=== PATIENT | female | born 1995 | race African-American/Black ===

== ENCOUNTER 2017-03-26 05:17 | Emergency (ER) | payer SELFPAY ==
[~2017-03-26] VITALS: Ht 162.6 cm; Wt 48.0 kg
[~2017-03-26 05:17] MED LIST: CEPH-460 PO; NYST15T TOPICAL
[2017-03-26 05:18] VITALS: BP 107/68; PULSE 82; RESP 18; TEMP 98.5; O2SAT 100
--- NOTE | 2017-03-26 05:58 | PD ---
HPI Chief Complaint: Abdominal Pain Time Seen by Provider: 05:38 Travel History International Travel<30 days: No Contact w/Intl Traveler<30days: No Traveled to known affect area: No History of Present Illness HPI The patient is a 22 year old female who presents to the [facility] emergency department with a history of awakening with a sensation of needing to urinate at 4 AM. The patient reports that since then she repeatedly feels like she needs to urinate and then began to have abdominal pain and bilateral lower quadrants of the abdomen in the suprapubic area. She reports that she recently saw her butter grader approximately 1-2 weeks ago. She reports that at that time she did have vaginal discharge. She reports that she had a pelvic examination done and was given a yeast medication pill. She reports that she completed the one-time dose and has not had any discharge since then. She reports that she is sexually active. She currently is not on any type of control. She reports that she has a Nexplanon in place, however it is been in place for over 3 years. She reports having a history of irregular menstrual cycles. Her last menstrual cycle was normal for her and the first day of it was March 04. The patient incidentally also reports that she has a history of Crohn's disease. She is not currently on any medication for it and has not been on any for the last year. She reports that she has had a bowel movement earlier today. She denies having any blood in her stool earlier today, however she reports 2 weeks ago she did have a small amount of blood on the toilet paper when she wiped after moving her bowels. The patient reports having dysuria with urinary urgency. On review of systems otherwise, the patient denies any recent known fevers, cough, congestion, neck pain, chest pain, shortness of breath, vomiting, diarrhea, or neurologic symptoms. LMP: 03/04. She has irregular cycles. Nexplanon in place for over 3 years. [facility] Past Medical History Narrative Medical The patient's past medical history is significant for Crohn's disease- dx 2013- on no medications for the last year, lichen sclerosis. PCP: none. Diminished Hearing: No Gastrointestinal Disorders: Yes (Chrons) Musculoskeletal: Yes (right sprained ankle) Immunizations Current: Yes Tetanus Vaccination: Unknown ?: Unknown LMP: 03/04/2017 Past Surgical History Surgical History: No Previous Surgery Social History Alcohol Use: Yes (occ) Tobacco Use: No Substance Use: No Allergies-Medications (Allergen,Severity, Reaction): Coded Allergies: No Known Allergies (Unverified , 06/06/16) Reported Meds & Prescriptions Reported Meds & Active Scripts Active Review of Systems Except as stated in HPI: all other systems reviewed are Neg General / Constitutional: No: Fever Eyes: No: Visual changes HENT: No: Headaches Cardiovascular: No: Chest Pain or Discomfort Respiratory: No: Shortness of Breath Gastrointestinal: Positive: Abdominal Pain, Hematochezia, No: Nausea, Vomiting , Diarrhea, Hematemesis, Changes in Bowel Habits, Indigestion, Loss of Appetite Genitourinary: Positive: Urgency, Frequency, Dysuria, Pelvic Pain, Discharge, No: Vaginal Bleeding Musculoskeletal: No: Pain Skin: No Rash Neurologic: No: Weakness Psychiatric: No: Depression Endocrine: No: Polydipsia Hematologic/Lymphatic: No: Easy Bruising Physical Exam Narrative General: The patient is a well-developed well-nourished female in no acute distress. Head and Neck exam: Head is normocephalic atraumatic. Eyes: EOMI, pupils are equal round and reactive to light. Nose: Midline septum with pink mucous membranes Mouth: Dentition unremarkable. Moist mucus membranes. Posterior oropharynx is not erythematous. No tonsillar hypertrophy. Uvula midline. Airway patent. Neck: No palpable lymphadenopathy. No nuchal rigidity. No thyromegaly. Cardiovascular: Regular rate and rhythm without murmurs, gallops, or rubs. No pulse deficit to the extremities. Lungs: Clear to auscultation bilaterally. No wheezes, rhonchi, or rales. Abdomen: Soft, with tenderness on palpation along the suprapubic area and bilateral lower quadrants of the abdomen as well as the right upper quadrant of the abdomen. No guarding, rebound, or rigidity. Negative [place] sign. Normal bowel sounds are audible. No point tenderness specifically on palpation over McBurney's point. Extremities: No clubbing, cyanosis, or edema. 2+ pulses in all 4 extremities. Back: No spinous process tenderness to palpation. Right-sided CVA tenderness on palpation. Neurologic Exam: Grossly nonfocal. Skin Exam: No rash noted. Intact skin that is warm and dry. Gynecologic exam: The patient was placed in the dorsal lithotomy position. Her external genitalia were examined. She had no evidence of rash or lesions. The speculum was placed into her vagina and the cervix was identified. She had a white to yellow discharge noted on examination with cervical motion tenderness noted.. No cervical friability. On Bimanual exam: No adnexal tenderness or prominence noted on palpation. No uterine tenderness or enlargement noted on palpation. Data Data Last Documented VS Vital Signs Date Time Temp Pulse Resp B/P (MAP) Pulse Ox O2 Delivery O2 Flow Rate FiO2 03/26/17 05:18 98.5 82 18 107/68 (81) 100 Orders Orders Complete Blood Count With Diff (03/26/17 05:58) Comprehensive Metabolic Panel (03/26/17 05:58) Lipase (03/26/17 05:58) Urinalysis - C+S If Indicated (03/26/17 05:58) Westergren Sedimentation Rate (03/26/17 05:58) Magnesium (Mg) (03/26/17 05:58) Iv Access Insert/Monitor (03/26/17 05:58) Ecg Monitoring (03/26/17 05:58) Oximetry (03/26/17 05:58) Ed Urine Pregnancytest Poc (03/26/17 05:58) Sodium Chlor 0.9% 1000 Ml Inj (Ns 1000 M (03/26/17 06:00) Ketorolac Inj (Toradol Inj) (03/26/17 06:15) Gc And Chlamydia Pcr (03/26/17 06:03) Wet Prep Profile (03/26/17 06:03) Labs Laboratory Tests Test 03/26/17 06:30 [facility] Medical Decision Making Medical Screen Exam Complete: Yes Emergency Medical Condition: Yes Medical Record Reviewed: Yes Differential Diagnosis Trichomoniasis, versus PID, versus gonorrhea, versus chlamydia, versus Crohn's exacerbation, versus ovarian cyst Narrative Course During the course of the patients emergency department visit, the patients history, examination, and differential diagnosis were reviewed with the patient. The patient had IV access obtained and blood work sent for analysis. The patient was placed on a photocomposing machine operator with oximetry and blood pressure monitoring. The patient was initially provided normal saline 1 L IV fluid bolus, Toradol 15 mg IV, Rocephin 250 mg IV, Zithromax 1 g by mouth 1. The patients laboratory studies and CT scan of the abdomen and pelvis are pending at the conclusion of my shift. The patient's case will be checked out to the oncoming emergency physician to disposition the patient based on the conclusion of the patient's workup. Ivon Lorenzo MD Mar 26, 2017 05:58
[2017-03-26] MEDS ORDERED: SODIUM CHLOR 0.9% 1000 ML INJ 1,000 ML IV ONE (06:00)
[2017-03-26] MEDS ORDERED: KETOROLAC TROMETHAMINE 30 MG/ML (IVP) VIAL IV PUSH ONE (06:15)
[2017-03-26 06:56] LABS: AUTOMATED NEUTROPHIL # 3.4 TH/MM3 (1.8-7.7); BASOPHIL % 0.6 % (0.0-2.0); EOSINOPHIL # 0.1 TH/MM3 (0-0.4); HEMATOCRIT 31.1 % (35.0-46.0); HEMO FLAGS DIFF FINAL; LYMPH % 42.9 % (9.0-44.0); LYMPHOCYTE # 3.1 TH/MM3 (1.0-4.8); MEAN CORPUSCULAR HEMOGLOBIN 26.4 PG (27.0-34.0); MEAN CORPUSCULAR HGB CONC 33.1 % (32.0-36.0); MONO % 7.9 % (0.0-8.0); NEUT % 46.6 % (16.0-70.0); PLATELET COUNT 323 TH/MM3 (150-450); RED BLOOD COUNT 3.89 MIL/MM3 (4.00-5.30); RED CELL DISTRIBUTION WIDTH 13.4 % (11.6-17.2); WHITE BLOOD COUNT 7.3 TH/MM3 (4.0-11.0)
[2017-03-26 07:00] VITALS: BP 104/60; PULSE 61; RESP 14; O2SAT 100
[2017-03-26] MEDS ORDERED: AZITHROMYCIN PWD FOR SUSP 1 GM PACKET PO ONE (07:00)
[2017-03-26] MEDS ORDERED: cefTRIAXone INJ 1,000 MG in SODIUM CHLORIDE 0.9% INJ 100 ML IV ONE (07:00)
[2017-03-26 07:07] LABS: ALT (GPT) 12 U/L (10-53); ANION GAP 6 MEQ/L (5-15); AST (GOT) 12 U/L (15-37); BICARBONATE 26.1 MEQ/L (21.0-32.0); BLOOD UREA NITROGEN 13 MG/DL (7-18); CHLORIDE 107 MEQ/L (98-107); GLOMERULAR FILTRATION RATE 125 ML/MIN (>89); POTASSIUM 3.8 MEQ/L (3.5-5.1); SODIUM (NA) 139 MEQ/L (136-145)
[2017-03-26 07:09] LABS: ALKALINE PHOSPHATASE 103 U/L (45-117); TOTAL BILIRUBIN ADULT 0.3 MG/DL (0.2-1.0)
[2017-03-26 07:19] LABS: BACTERIA, URINE MOD /hpf; BLOOD, URINE TRACE (NEG); COMMENT (UR) CULTURE INDICATED; CULTURE IF INDICATED CULTURE INDICATED; GLUCOSE,URINE NEG (NEG); KETONE, URINE NEG (NEG); MUCUS URINE MOD /lpf (OCC); NITRITE,URINE NEG (NEG); SQUAMOUS EPITHELIAL CELL URINE 17 /hpf (0-5); TRANSITIONAL EPI CELLS, URINE 1 /hpf; URINE COLOR YELLOW (YELLW/STRAW)
[2017-03-26] MEDS ORDERED: IOHEXOL 350 MG/ML 10 ML VIAL (for RAD DIAG) IV PUSH ONE (08:15)
--- NOTE | 2017-03-26 08:30 | RADRPT ---
EXAM DATE/TIME: 03/26/2017 08:11 [facility] COMPARISON: CT ABDOMEN & PELVIS W CONTRAST, February 28, 2016, 16:22. INDICATIONS : Right lower quadrant pain. IV CONTRAST: 78 cc Omnipaque 350 (iohexol) IV ORAL CONTRAST: No oral contrast ingested. RADIATION DOSE: 4.51 CTDIvol (mGy) MEDICAL HISTORY : Crohn's disease. SURGICAL HISTORY : None. ENCOUNTER: Initial ACUITY: 1 day PAIN SCALE: 5/10 LOCATION: Right lower quadrant TECHNIQUE: Volumetric scanning of the abdomen and pelvis was performed. Using automated exposure control and ad justment of the mA and/or kV according to patient size, radiation dose was kept as low as reasonably achievable to obtain optimal diagnostic quality images. DICOM format image data is available electro nically for review and comparison. FINDINGS: Examination of the lung bases demonstrates no abnormality. No pleural fluid is identified. No pulmona ry nodules are present. The liver and spleen are free of focal defects. The gallbladder and pancreas demonstrate no abnormality. The adrenal glands are normal. The kidneys demonstrate no evidence of nancy id renal mass or hydronephrosis. No free fluid or abdominal masses are identified. No para-aortic shyann nopathy is seen. Fluid is identified within the endometrial cavity. No adnexal masses are identified. A small amount o f fluid is present within the pelvis within the physiologic range. There is no evidence of abscess. T he bladder appears normal. No wall thickening or intraluminal masses are identified. CONCLUSION: 1. No evidence of acute abdominal or pelvic process. No masses are identified. Cachorro Guerra MD on March 26, 2017 at 8:25 Board Certified Radiologist. This report was verified electronically.
[2017-03-26 09:14] LABS: CHLAMYDIA PCR NOT DETECTED (NOT DETECT); NEISSERIA PCR NOT DETECTED (NOT DETECT)
[2017-03-26 09:28] VITALS: BP 76/44; PULSE 94; RESP 15; O2SAT 99
[2017-03-26 12:15] VITALS: BP 101/55; PULSE 77; RESP 16; O2SAT 100
[2017-03-26] MEDS ORDERED: BACT800T5 PO (12:18)
--- NOTE | 2017-03-26 12:19 | PD ---
Physical Exam Date Seen by Provider: Mar 26, 2017 Time Seen by Provider: 07:30 Narrative Patient signed out to me by Dr. Lorenzo, please see previous notes for further details. Awaiting CAT scan. Patient had been given prophylactic antibiotics for vaginal discharge. Laboratory Tests Test 03/26/17 06:30 03/26/17 06:43 Red Blood Count 3.89 MIL/MM3 (4.00-5.30) Hemoglobin 10.3 GM/DL (11.6-15.3) Hematocrit 31.1 % (35.0-46.0) Mean Corpuscular Hemoglobin 26.4 PG (27.0-34.0) Erythrocyte Sedimentation Rate 21 mm/hr (0-20) Urine Turbidity HAZY (CLEAR) Urine Protein 30 mg/dL (NEG-TRACE) Urine Occult Blood TRACE (NEG) Urine Leukocyte Esterase LARGE (NEG) Urine RBC 7 /hpf (0-3) Urine WBC 97 /hpf (0-5) Urine Bacteria MOD /hpf (NONE) Urine Mucus MOD /lpf (OCC) Calcium Level 8.3 MG/DL (8.5-10.1) Aspartate Amino Transf (AST/SGOT) 12 U/L (15-37) Lipase 71 U/L (73-393) Lab work is significant for UTI which I also plan to treat. CAT scan was unremarkable for any signs of acute intra-abdominal processes. Follow-up with primary care physician at this point. Return for any worsening in symptoms as necessary. The plan has been discussed with her and she states understanding. Data Data Last Documented VS Vital Signs Date Time Temp Pulse Resp B/P (MAP) Pulse Ox O2 Delivery O2 Flow Rate FiO2 03/26/17 12:15 77 16 101/55 (70) 100 Room Air 03/26/17 05:18 98.5 Orders Orders Complete Blood Count With Diff (03/26/17 05:58) Comprehensive Metabolic Panel (03/26/17 05:58) Lipase (03/26/17 05:58) Urinalysis - C+S If Indicated (03/26/17 05:58) Westergren Sedimentation Rate (03/26/17 05:58) Magnesium (Mg) (03/26/17 05:58) Iv Access Insert/Monitor (03/26/17 05:58) Ecg Monitoring (03/26/17 05:58) Oximetry (03/26/17 05:58) Ed Urine Pregnancytest Poc (03/26/17 05:58) Sodium Chlor 0.9% 1000 Ml Inj (Ns 1000 M (03/26/17 06:00) Ketorolac Inj (Toradol Inj) (03/26/17 06:15) Gc And Chlamydia Pcr (03/26/17 06:03) Wet Prep Profile (03/26/17 06:03) Ceftriaxone Inj (Rocephin Inj) (03/26/17 07:00) Azithromycin Powd Pack (Zithromax Powd P (03/26/17 07:00) Ct Abd/Pel W Iv Contrast(Rout) (03/26/17 06:58) Urine Culture (03/26/17 06:30) Iohexol 350 Inj (Omnipaque 350 Inj) (03/26/17 08:15) Labs Laboratory Tests Test 03/26/17 06:30 03/26/17 06:43 White Blood Count 7.3 TH/MM3 Red Blood Count 3.89 MIL/MM3 Hemoglobin 10.3 GM/DL Hematocrit 31.1 % Mean Corpuscular Volume 80.0 FL Mean Corpuscular Hemoglobin 26.4 PG Mean Corpuscular Hemoglobin Concent 33.1 % Red Cell Distribution Width 13.4 % Platelet Count 323 TH/MM3 Mean Platelet Volume 9.3 FL Neutrophils (%) (Auto) 46.6 % Lymphocytes (%) (Auto) 42.9 % Monocytes (%) (Auto) 7.9 % Eosinophils (%) (Auto) 2.0 % Basophils (%) (Auto) 0.6 % Neutrophils # (Auto) 3.4 TH/MM3 Lymphocytes # (Auto) 3.1 TH/MM3 Monocytes # (Auto) 0.6 TH/MM3 Eosinophils # (Auto) 0.1 TH/MM3 Basophils # (Auto) 0.0 TH/MM3 CBC Comment DIFF FINAL Differential Comment Erythrocyte Sedimentation Rate 21 mm/hr Urine Color YELLOW Urine Turbidity HAZY Urine pH 6.0 Urine Specific [place] 1.031 Urine Protein 30 mg/dL Urine Glucose (UA) NEG mg/dL Urine Ketones NEG mg/dL Urine Occult Blood TRACE Urine Nitrite NEG Urine Bilirubin NEG Urine Urobilinogen 2.0 MG/DL Urine Leukocyte Esterase LARGE Urine RBC 7 /hpf Urine WBC 97 /hpf Urine Squamous Epithelial Cells 17 /hpf Urine Transitional Epithelial Cells 1 /hpf Urine Bacteria MOD /hpf Urine Mucus MOD /lpf Microscopic Urinalysis Comment CULTURE INDICATED Blood Urea Nitrogen 13 MG/DL Creatinine 0.71 MG/DL Random Glucose 90 MG/DL Total Protein 7.6 GM/DL Albumin 3.8 GM/DL Calcium Level 8.3 MG/DL Magnesium Level 2.0 MG/DL Alkaline Phosphatase 103 U/L Aspartate Amino Transf (AST/SGOT) 12 U/L Alanine Aminotransferase (ALT/SGPT) 12 U/L Total Bilirubin 0.3 MG/DL Sodium Level 139 MEQ/L Potassium Level 3.8 MEQ/L Chloride Level 107 MEQ/L Carbon Dioxide Level 26.1 MEQ/L Anion Gap 6 MEQ/L Estimat Glomerular Filtration Rate 125 ML/MIN Lipase 71 U/L Clue Cells (Wet Prep) NONE SEEN Vaginal Trichomonas (Wet Prep) NONE SEEN Vaginal Yeast (Wet Prep) NONE SEEN Chlamydia trachomatis DNA (PCR) NOT DETECTED Neisseria gonorrhoeae DNA (PCR) NOT DETECTED MDM Medical Record Reviewed: Yes Supervised Visit with MI: No Diagnosis Primary Impression: Urinary tract infection Additional Impression: Abdominal pain Med/Other Pt SpecificInfo: Prescription(s) given Scripts Sulfamethoxazole-Trimethoprim (Bactrim DS) 800-160 Mg Tab 1 TAB PO BID for Infection, #14 TAB 0 Refills Prov: Anh Monroe MD 03/26/17 Disposition: 01 DISCHARGE HOME Condition: Stable Anh Monroe MD Mar 26, 2017 12:19
== END 2017-03-26 12:33 | disposition home or self-care (01) ==
LOC: NEPE 05:17
DX: N39.0 Urinary tract infection, site not specified (principal); K50.90 Crohn's disease, unspecified, without complications; N89.8 Other specified noninflammatory disorders of vagina
CPT/HCPCS: 74177; 80053; 81001; 83690; 83735; 84703; 85025; 85652; 87086; 87210; 87491; 87591; 96365; 96375; 99285; J0696; J1885; J7030; Q9967

== ENCOUNTER 2017-09-27 13:03 | Emergency (ER) | payer BC, OTHER ==
[~2017-09-27] VITALS: Ht 162.6 cm; Wt 45.0 kg
[~2017-09-27 13:03] MED LIST changes: +BACT800T5 PO; -CEPH-460 PO; -NYST15T TOPICAL
[2017-09-27 13:10] VITALS: BP 123/81; PULSE 106; RESP 16; TEMP 100; O2SAT 100
[2017-09-27 13:55] LABS: BACTERIA, URINE FEW /hpf; BILIRUBIN, URINE NEG (NEG); BLOOD, URINE SMALL (NEG); GLUCOSE,URINE NEG (NEG); KETONE, URINE TRACE mg/dL (NEG); MUCUS URINE MANY /lpf (OCC); NITRITE,URINE NEG (NEG); SQUAMOUS EPITHELIAL CELL URINE 14 /hpf (0-5); URINE COLOR YELLOW (YELLW/STRAW); URINE LEUKOCYTE ESTERASE TRACE (NEG)
[2017-09-27 15:55] VITALS: BP 117/77; PULSE 89; RESP 18; TEMP 102; O2SAT 100
[2017-09-27] MEDS ORDERED: ACETAMINOPHEN 325 MG TAB PO ONE (16:45)
--- NOTE | 2017-09-27 16:49 | PD ---
HPI Chief Complaint: Abdominal Pain Time Seen by Provider: 16:09 Travel History International Travel<30 days: No Contact w/Intl Traveler<30days: No Traveled to known affect area: No History of Present Illness HPI The patient was seen and examined in the presence of the nurse. This patient complains of fever. Duration 2 days. Severity of symptoms is moderate. She has had runny nose and congestion as well as a cough that is prominent. She reports a history of Crohn's disease but has been off medication for 2 years because she has been symptom-free. She comes in worrying that she has toxic shock syndrome. She says on Sunday she left a tampon in for approximately 25 hours. She is not having vaginal discharge or any significant pelvic pain. No alleviating factors. No exacerbating factors. PFSH Past Medical History Diminished Hearing: No Gastrointestinal Disorders: Yes (CROHNS DISEASE) Musculoskeletal: Yes (right sprained ankle) Immunizations Current: Yes Tetanus Vaccination: > 5 Years Influenza Vaccination: No ?: Not LMP: 09/24/17 : 0 Para: 0 Miscarriage: 0 : 0 Past Surgical History Surgical History: No Previous Surgery Social History Alcohol Use: Yes (SOCIALLY) Tobacco Use: No Substance Use: No Allergies-Medications (Allergen,Severity, Reaction): Coded Allergies: No Known Allergies (Unverified Adverse Reaction, Unknown, 09/27/17) Reported Meds & Prescriptions Reported Meds & Active Scripts Active No Active Prescriptions or Reported Medications Review of Systems General / Constitutional: Positive: Fever Eyes: No: Visual changes HENT: Positive: Rhinorrhea, Congestion, No: Headaches Cardiovascular: No: Chest Pain or Discomfort Respiratory: Positive: Cough, No: Shortness of Breath Gastrointestinal: No: Abdominal Pain Genitourinary: No: Dysuria Musculoskeletal: No: Pain Skin: No Rash Neurologic: No: Weakness Psychiatric: No: Depression Endocrine: No: Polydipsia Hematologic/Lymphatic: No: Easy Bruising Physical Exam Narrative GENERAL: Thin pleasant well-developed patient in no apparent distress. SKIN: Focused skin assessment reveals no rash and nodules. Skin is Warm and dry. HEAD: Atraumatic. Normocephalic. EYES: Pupils equal and round. No scleral icterus. No injection or drainage. ENT: No nasal bleeding or discharge. Mucous membranes pink and moist. Throat clear NECK: Trachea midline. No JVD. No meningeal signs CARDIOVASCULAR: Regular rate and rhythm. No murmur appreciated. RESPIRATORY: No accessory muscle use. Clear to auscultation. Breath sounds equal bilaterally. GASTROINTESTINAL: Abdomen soft, non-tender, nondistended. Hepatic and splenic margins not palpable. MUSCULOSKELETAL: No obvious deformities. No clubbing. No cyanosis. No edema. NEUROLOGICAL: Awake and alert. No obvious cranial nerve deficits. Motor grossly within normal limits. Normal speech. PSYCHIATRIC: Appropriate mood and affect; insight and judgment normal. Pelvic: No discharge. No cervical motion tenderness. No adnexal mass or tenderness. Scant amount of brown clotted blood in the vault Data Data Last Documented VS Vital Signs Date Time Temp Pulse Resp B/P (MAP) Pulse Ox O2 Delivery O2 Flow Rate FiO2 09/27/17 15:55 16 09/27/17 15:55 102.0 89 117/77 (90) 100 Room Air Orders Orders Complete Blood Count With Diff (09/27/17 13:14) Comprehensive Metabolic Panel (09/27/17 13:14) Urinalysis - C+S If Indicated (09/27/17 13:14) Ed Urine Pregnancytest Poc (09/27/17 13:14) Lipase (09/27/17 13:14) Influenzae A/B Antigen (09/27/17 16:40) Chest, Single Ap (09/27/17 ) Acetaminophen (Tylenol) (09/27/17 16:45) Labs Laboratory Tests Test 09/27/17 13:42 Urine Color YELLOW Urine Turbidity HAZY Urine pH 6.0 Urine Specific [place] 1.029 Urine Protein 30 mg/dL Urine Glucose (UA) NEG mg/dL Urine Ketones TRACE mg/dL Urine Occult Blood SMALL Urine Nitrite NEG Urine Bilirubin NEG Urine Urobilinogen LESS THAN 2.0 MG/DL Urine Leukocyte Esterase TRACE Urine RBC 3 /hpf Urine WBC 6 /hpf Urine Squamous Epithelial Cells 14 /hpf Urine Bacteria FEW /hpf Urine Mucus MANY /lpf Microscopic Urinalysis Comment CULT NOT INDICATED MDM Medical Decision Making Medical Screen Exam Complete: Yes Emergency Medical Condition: Yes Medical Record Reviewed: Yes Differential Diagnosis Flu syndrome, pneumonia, PID Narrative Course I have reviewed the patient's electronic medical record. IV placed and labs sent I gave her dose of Tylenol She does not look septic nor toxic Even with a temp of 102 she is not tachycardic She has a soft benign nontender abdomen and normal pelvic exam not consistent with PID or pelvic infection She does have some flu type symptoms I have ordered a chest x-ray and influenza swab Case will be checked out to the 5 PM physician to assist with disposition. Scripts No Active Prescriptions or Reported Meds Jack Carlson MD Sep 27, 2017 16:49
--- NOTE | 2017-09-27 17:03 | RADRPT ---
EXAM DATE/TIME: 09/27/2017 16:45 [facility] COMPARISON: No previous studies available for comparison. INDICATIONS : Fever MEDICAL HISTORY : Crohn's disease SURGICAL HISTORY : None. ENCOUNTER: Initial ACUITY: 3 days PAIN SCORE: 0/10 LOCATION: chest FINDINGS: A single view of the chest demonstrates the lungs to be symmetrically aerated without evidence of mas s, infiltrate or effusion. The cardiomediastinal contours are unremarkable. Osseous structures are intact. CONCLUSION: The lungs are clear. Maciej Barber MD on September 27, 2017 at 17:01 Board Certified Radiologist. This report was verified electronically.
[2017-09-27 17:05] LABS: AUTOMATED NEUTROPHIL # 5.5 TH/MM3 (1.8-7.7); BASOPHIL % 0.5 % (0.0-2.0); HEMATOCRIT 33.4 % (35.0-46.0); HEMOGLOBIN 10.9 GM/DL (11.6-15.3); LYMPH % 13.2 % (9.0-44.0); MEAN CELL VOLUME 79.2 FL (80.0-100.0); MEAN CORPUSCULAR HGB CONC 32.8 % (32.0-36.0); MEAN PLATELET VOLUME 9.1 FL (7.0-11.0); MONO % 12.8 % (0.0-8.0); NEUT % 73.5 % (16.0-70.0); PLATELET COUNT 357 TH/MM3 (150-450); RED BLOOD COUNT 4.22 MIL/MM3 (4.00-5.30); RED CELL DISTRIBUTION WIDTH 13.7 % (11.6-17.2); WHITE BLOOD COUNT 7.6 TH/MM3 (4.0-11.0)
[2017-09-27] MEDS ORDERED: OSELTAMIVIR PHOSPHATE 75 MG CAP PO ONE (17:30)
[2017-09-27 17:42] LABS: ALBUMIN 3.8 GM/DL (3.4-5.0); AST (GOT) 13 U/L (15-37); BICARBONATE 25.8 MEQ/L (21.0-32.0); BLOOD UREA NITROGEN 6 MG/DL (7-18); CALCIUM 8.7 MG/DL (8.5-10.1); CHLORIDE 105 MEQ/L (98-107); CREATININE 0.85 MG/DL (0.50-1.00); GLOMERULAR FILTRATION RATE 101 ML/MIN (>89); GLUCOSE,RANDOM 102 MG/DL (74-106); SODIUM (NA) 138 MEQ/L (136-145)
[2017-09-27 17:45] VITALS: BP 100/54; PULSE 78; RESP 16; TEMP 99.6; O2SAT 98
[2017-09-27 17:46] LABS: ALKALINE PHOSPHATASE 77 U/L (45-117); ALT (GPT) 11 U/L (10-53); TOTAL BILIRUBIN ADULT 0.3 MG/DL (0.2-1.0); TOTAL PROTEIN 8.2 GM/DL (6.4-8.2)
--- NOTE | 2017-09-27 17:53 | PD ---
Physical Exam Date Seen by Provider: Sep 27, 2017 Time Seen by Provider: 17:52 Narrative 22-year-old female came to the emergency room with history of fever and URI symptoms. She was seen by the previous ER physician. Please refer to his history and physical for further details. Signout was to follow-up on the lab results. The test results have come back and CBC and BMP are relatively within normal limits. Influenza B has been tested positive. Patient has been given a dose of Tamiflu by me. I am comfortable discharging her home with a prescription for Tamiflu. Data Data Last Documented VS Vital Signs Date Time Temp Pulse Resp B/P (MAP) Pulse Ox O2 Delivery O2 Flow Rate FiO2 09/27/17 19:13 09/27/17 17:45 99.6 78 16 98 Room Air Orders Orders Complete Blood Count With Diff (09/27/17 13:14) Comprehensive Metabolic Panel (09/27/17 13:14) Urinalysis - C+S If Indicated (09/27/17 13:14) Ed Urine Pregnancytest Poc (09/27/17 13:14) Lipase (09/27/17 13:14) Influenzae A/B Antigen (09/27/17 16:40) Chest, Single Ap (09/27/17 ) Acetaminophen (Tylenol) (09/27/17 16:45) Oseltamivir (Tamiflu) (09/27/17 17:30) Ed Discharge Order (09/27/17 17:51) Labs Laboratory Tests Test 09/27/17 13:42 09/27/17 14:35 Urine Color YELLOW Urine Turbidity HAZY Urine pH 6.0 Urine Specific [place] 1.029 Urine Protein 30 mg/dL Urine Glucose (UA) NEG mg/dL Urine Ketones TRACE mg/dL Urine Occult Blood SMALL Urine Nitrite NEG Urine Bilirubin NEG Urine Urobilinogen LESS THAN 2.0 MG/DL Urine Leukocyte Esterase TRACE Urine RBC 3 /hpf Urine WBC 6 /hpf Urine Squamous Epithelial Cells 14 /hpf Urine Bacteria FEW /hpf Urine Mucus MANY /lpf Microscopic Urinalysis Comment CULT NOT INDICATED White Blood Count 7.6 TH/MM3 Red Blood Count 4.22 MIL/MM3 Hemoglobin 10.9 GM/DL Hematocrit 33.4 % Mean Corpuscular Volume 79.2 FL Mean Corpuscular Hemoglobin 26.0 PG Mean Corpuscular Hemoglobin Concent 32.8 % Red Cell Distribution Width 13.7 % Platelet Count 357 TH/MM3 Mean Platelet Volume 9.1 FL Neutrophils (%) (Auto) 73.5 % Lymphocytes (%) (Auto) 13.2 % Monocytes (%) (Auto) 12.8 % Eosinophils (%) (Auto) 0.0 % Basophils (%) (Auto) 0.5 % Neutrophils # (Auto) 5.5 TH/MM3 Lymphocytes # (Auto) 1.0 TH/MM3 Monocytes # (Auto) 1.0 TH/MM3 Eosinophils # (Auto) 0.0 TH/MM3 Basophils # (Auto) 0.0 TH/MM3 CBC Comment DIFF FINAL Differential Comment Blood Urea Nitrogen 6 MG/DL Creatinine 0.85 MG/DL Random Glucose 102 MG/DL Total Protein 8.2 GM/DL Albumin 3.8 GM/DL Calcium Level 8.7 MG/DL Alkaline Phosphatase 77 U/L Aspartate Amino Transf (AST/SGOT) 13 U/L Alanine Aminotransferase (ALT/SGPT) 11 U/L Total Bilirubin 0.3 MG/DL Sodium Level 138 MEQ/L Potassium Level 3.4 MEQ/L Chloride Level 105 MEQ/L Carbon Dioxide Level 25.8 MEQ/L Anion Gap 7 MEQ/L Estimat Glomerular Filtration Rate 101 ML/MIN Lipase 74 U/L MDM Supervised Visit with MI: No Diagnosis Primary Impression: Fever Qualified Codes: R50.9 - Fever, unspecified Additional Impression: Influenza B Referrals: Primary Care Physician Additional Instruction: Take the medication as per the prescription direction. Drink lots of fluid. Take Tylenol/Motrin for fever and/or pain. Follow-up with your primary care. Return to the ER if condition worsens or any other new concerns. Med/Other Pt SpecificInfo: Prescription(s) given Scripts Oseltamivir (Tamiflu) 75 Mg Cap 75 MG PO BID for Mgmt Viral Infection for 7 Days, #14 CAP 0 Refills Prov: Alin Medley MD 09/27/17 Disposition: 01 DISCHARGE HOME Condition: Stable Alin Medley MD Sep 27, 2017 17:53
[2017-09-27] MEDS ORDERED: OSEL75 PO (18:14)
== END 2017-09-27 18:32 | disposition home or self-care (01) ==
LOC: NEPD 13:03
DX: J10.1 Influenza due to other identified influenza virus with other respiratory manifestations (principal); K50.90 Crohn's disease, unspecified, without complications
CPT/HCPCS: 71045; 80053; 81001; 83690; 84703; 85025; 87804; 99284